=== PATIENT | male | born 1995 | race Caucasian/White ===

== ENCOUNTER 2017-07-28 07:30 | Emergency (ER) | payer OTHER ==
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
--- NOTE | 2017-07-28 12:01 | CT ---
DATE OF SERVICE: 07/28/17 CLINICAL DATA: wheelchair. UNENHANCED BRAIN CT: Multislice acquisition through the brain without IV contrast was performed. No priors. There is a cavum septum pellucidum and a cavum vergae. There are normal variants. No masses or mass effect. No intracranial hemorrhage. No evidence of acute or subacute infarct. There is mucosal thickening in the maxillary and ethmoid sinuses, consistent with chronic sinusitis. There are rounded low density lesions in both maxillary sinuses, consistent with retention cysts or polyps. No fractures. IMPRESSION: No acute intracranial abnormalities. [id number] [facility]
--- NOTE | 2017-07-28 12:04 | CT ---
DATE OF SERVICE: 07/28/17 CLINICAL DATA: wheelchair. CERVICAL SPINE CT: Multislice axial acquisition from the base of the skull to the top of T2 was performed. Axial images and sagittal and coronal reformations are reviewed. There is straightening of the normal cervical lordosis on the sagittal reformations. This is most likely positional or due to muscle spasm. The vertebral bodies are of average height and in good alignment. No acute fracture or dislocation. No lytic or blastic bone lesions. The soft tissues are unremarkable. IMPRESSION: No acute abnormalities. [id number] [facility]
--- NOTE | 2017-07-28 12:09 | CT ---
DATE OF SERVICE: 07/28/17 CLINICAL DATA: wheelchair THORACIC SPINE CT: Multislice axial acquisition was performed. Axial images and sagittal and coronal reformations are reviewed. There is slight anterior wedging of the T11 vertebra, age indeterminate. It is probably chronic. The remaining vertebral bodies are of average height and in good alignment. No significant central or foraminal stenosis. The soft tissues are unremarkable. IMPRESSION: 1. Slight anterior wedging of T11 vertebra. This appears to be chronic. 2. Otherwise negative. Cannot completely exclude an acute injury. [id number] [facility]
== END 2017-07-28 09:15 | disposition home or self-care (01) ==
LOC: LB.ED 07:40
DX: S00.03XA Contusion of scalp, initial encounter (principal); M54.6 Pain in thoracic spine; V89.2XXA Person injured in unspecified motor-vehicle accident, traffic, initial encounter
CPT/HCPCS: 70450; 72125; 72128; 99284-25